=== PATIENT | female | born 1985 | race Caucasian/White ===

== ENCOUNTER 2016-10-17 18:59 | Inpatient (IN) | payer MEDICAID ==
[~2016-10-17] VITALS: Ht 170.2 cm; Wt 64.0 kg
[~2016-10-17 18:59] MED LIST: ALPR0.25; NOR10T
[2016-10-17] MEDS ORDERED: SODIUM CHLORIDE 0.9% 1,000 ML IVB ONE (19:05)
[2016-10-17 19:37] LABS: DEFINITIVE VIEW TRANSMISSION; Hematocrit 41.3 % (36.0-46.0); Hemoglobin 13.2 g/dL (12.2-16.2); Mean Corpuscular Hemoglobin 29.5 pg (28.0-32.0); Mean Corpuscular Volume 92.3 fL (80.0-100.0); Platelet Count (auto) 40 10^3/uL (140-450); SUSPECT VIEW TRANSMISSION; White Blood Cell 11.8 10^3/uL (4.4-10.8)
[2016-10-17 19:43] LABS: Urine Bilirubin Negative (Negative); Urine Color Yellow (Yellow); Urine Glucose Normal (Normal); Urine Ketone TRACE (Negative); Urine Mucus FEW (None Seen); Urine RBC 19 /hpf (0 - 4); Urine Squamous Epithelial Cell FEW /hpf (<5); Urine Urobilinogen Normal (Negative); Urine pH 6.5 (5.0-8.0)
[2016-10-17 19:47] LABS: Urine Blood 3+ /uL (Negative); Urine Nitrite POSITIVE (Negative)
[2016-10-17 19:51] LABS: INR 1.31 (0.9-1.15); Partial Thromboplastin Time 31.5 sec (22.64-33.71); Prothrombin Time 14.1 sec (9.37-12.3)
[2016-10-17 19:54] LABS: Red Cell Distribution Width 20.7 % (11.6-16.0)
[2016-10-17 19:55] LABS: Metamyelocytes % 0; Myelocytes % 0; Promyelocytes % 0; Reactive Lymphocytes 0
[2016-10-17 19:59] LABS: Lactic Acid w/Reflex 6.7 mmol/L (0.4-2.0)
[2016-10-17 20:00] LABS: REFLEX LACTIC ACID YES OR NO YES
[2016-10-17 20:15] LABS: Albumin 2.7 g/dL (3.4-5.0); Alkaline Phosphatase 79 U/L (45-117); Anion Gap 18 (5-15); Aspartate Aminotransferase 125 U/L (15-37); BUN/Creatinine Ratio 26.6; Blood Urea Nitrogen 34 mg/dL (7-18); Calcium 8.4 mg/dL (8.5-10.1); Carbon Dioxide 21 mmol/L (21-32); Chloride 105 mmol/L (98-107); GFR African American 63 mL/min; GFR Non-African American 52 mL/min; Glucose 127 mg/dL (74-106); Magnesium 3.1 mg/dL (1.6-2.6); Sodium 144 mmol/L (136-145); Total Protein 7.6 g/dL (6.4-8.2)
[2016-10-17] MEDS ORDERED: SODIUM CHLORIDE 0.9% 1,000 ML IV ONE (20:15)
[2016-10-17] MEDS ORDERED: PIPERACILLIN-TAZOB 3.375GM 100 ML IV ONE ×2 (20:15→20:16)
[2016-10-17 20:20] LABS: Potassium 2.6 mmol/L (3.5-5.1)
[2016-10-17 20:29] LABS: Anisocytosis Slight; Giant Platelets Few; Large Platelets FEW; Platelet Estimate Decreased
[2016-10-17] MEDS ORDERED: ACETAMINOPHEN 650 MG RECT SUPP PR ONE ×2 (21:16→21:30)
[2016-10-17] MEDS: POTASSIUM CHL 20MEQ/100ML 100 ML IV SCH ×2 (21:20→22:30)
[2016-10-17] MEDS ORDERED: SODIUM CHLORIDE 0.9% 1,000 ML IV SCH (23:53)
[2016-10-18] VITALS (49 sets, daily range): BP systolic 83–140; BP diastolic 31–113
[2016-10-18] MEDS ORDERED: ONDANSETRON HCL 4 MG/2 ML VIAL IV PRN
[2016-10-18] MEDS ORDERED: ASPirin 81 mg TAB NG ONE
[2016-10-18] MEDS ORDERED: NITROGLYCERIN 0.4 MG SL TAB SL PRN
[2016-10-18] MEDS ORDERED: PANTOPRAZOLE SODIUM 40 MG/10 ML VIAL IV ONE
[2016-10-18] MEDS ORDERED: VANCOMYCIN PER PHARMACY 0 MG IV SCH
[2016-10-18 00:35] LABS: Blood 02Sat 95.9 % (96-100); Blood AaDO2 85.5 mmHg (<26.0); Blood COHb 0.3 % (<2.0); Blood MetHb 0.3 % (0.0-1.5); Blood O2Hb 95.3 % (95.0-100.0); HCO3 17.5 mmol/L (22-26.0); MODE NASAL CANNULA; PCO2 22.7 mmHg (35.0-45.0); PO2 87.4 mmHg (65.0-85.0); Room 1009-ERT; Sample Type Arterial; pH 7.504 (7.350-7.450)
[2016-10-18] MEDS ORDERED: VANCOMYCIN 1GM/250ML D5W 250 ML IV ONE (01:00)
[2016-10-18] MEDS ORDERED: SODIUM CHLORIDE 0.9% 1,000 ML IV ONE (02:45)
[2016-10-18 03:57] LABS: DEFINITIVE VIEW TRANSMISSION; SUSPECT VIEW TRANSMISSION
[2016-10-18] MEDS ORDERED: PIPERACILLIN-TAZOB 2.25GM 50 ML IV SCH (04:00)
[2016-10-18 04:08] LABS: Hematocrit 31.8 % (36.0-46.0); Hemoglobin 10.3 g/dL (12.2-16.2); Mean Corpuscular Hgb Conc. 32.5 g/dL (32.0-36.0); Mean Corpuscular Volume 92.4 fL (80.0-100.0); Mean Platelet Volume 11.7 fL (7.4-10.4); Platelet Count (auto) 25 10^3/uL (140-450)
[2016-10-18 04:15] LABS: Red Cell Distribution Width 21.7 % (11.6-16.0)
[2016-10-18 04:16] LABS: Metamyelocytes % 0; Myelocytes % 0; Promyelocytes % 0; Reactive Lymphocytes 0
[2016-10-18 04:24] LABS: BUN/Creatinine Ratio 33.3; Calcium 6.9 mg/dL (8.5-10.1)
[2016-10-18 04:27] LABS: Bilirubin, Total 1.2 mg/dL (0.2-1.0); Total Protein 5.7 g/dL (6.4-8.2)
[2016-10-18 04:39] LABS: Potassium 2.5 mmol/L (3.5-5.1)
[2016-10-18 04:48] LABS: Anisocytosis Slight; Ovalocytes FEW; Platelet Estimate Decreased
[2016-10-18] MEDS ORDERED: POTASSIUM CHL 20MEQ/100ML 100 ML IV ONE ×2 (04:53)
[2016-10-18] MEDS: POTASSIUM CHL 20MEQ/100ML 100 ML IV SCH ×5 (05:15→14:15)
[2016-10-18] MEDS: PIPERACILLIN-TAZOB 3.375GM 100 ML IV SCH ×3 (06:00→22:26)
[2016-10-18] MEDS: PANTOPRAZOLE SODIUM 40 MG/10 ML VIAL IV SCH (09:08)
[2016-10-18] MEDS: MORPHINE SULF INJ 2 MG/ML SYRINGE 1ML IV PRN ×3 (09:09→22:17)
[2016-10-18] MEDS: ENOXAPARIN SOD 40 MG/0.4 ML SYRINGE SC SCH (09:09)
[2016-10-18] MEDS ORDERED: ASPirin 81 mg TAB PO SCH (10:00)
[2016-10-18] MEDS ORDERED: ENOXAPARIN SOD 30 MG/0.3 ML SYRINGE SC SCH (10:00)
[2016-10-18] MEDS ORDERED: POTASSIUM PHOSPHATE 44 MEQ in SODIUM CHL 0.9% 250 ML IV ONE (12:00)
[2016-10-18] MEDS: SOD CHL 0.9%/ KCL 20MEQ 1,000 ML IV SCH ×2 (12:15→22:15)
[2016-10-18 12:51] LABS: BUN/Creatinine Ratio 36.4; Calcium 6.9 mg/dL (8.5-10.1); Potassium 3.2 mmol/L (3.5-5.1)
[2016-10-18] MEDS: VANCOMYCIN 1GM/250ML D5W 250 ML IV SCH (13:00)
[2016-10-18] MEDS ORDERED: POTASSIUM CHLORIDE 40 MEQ, LIDOCAINE 1% (LOCAL ANESTH.) 4 ML in SODIUM CHL 0.9% 250 ML IV ONE (13:30)
[2016-10-18] MEDS ORDERED: NICOTINE 21MG/24 HR TOPICAL PATCH TD ONE (14:30)
[2016-10-18 18:13] LABS: BUN/Creatinine Ratio 32.3; Calcium 7.3 mg/dL (8.5-10.1); Potassium 3.7 mmol/L (3.5-5.1)
[2016-10-19] VITALS (40 sets, daily range): BP systolic 92–131; BP diastolic 47–79
[2016-10-19] MEDS: VANCOMYCIN 1GM/250ML D5W 250 ML IV SCH ×2 (01:04→14:17)
[2016-10-19] MEDS: MORPHINE SULF INJ 2 MG/ML SYRINGE 1ML IV PRN ×5 (02:25→22:08)
[2016-10-19] MEDS: SOD CHL 0.9%/ KCL 20MEQ 1,000 ML IV SCH ×4 (04:00→22:09)
[2016-10-19 04:03] LABS: Magnesium 2.6 mg/dL (1.6-2.6)
[2016-10-19 04:06] LABS: BUN/Creatinine Ratio 28.9
[2016-10-19 04:08] LABS: Bilirubin, Total 0.9 mg/dL (0.2-1.0); Total Protein 5.8 g/dL (6.4-8.2)
[2016-10-19 04:47] LABS: DEFINITIVE VIEW TRANSMISSION; Hemoglobin 10.1 g/dL (12.2-16.2); SUSPECT VIEW TRANSMISSION
[2016-10-19 04:48] LABS: Hematocrit 31.9 % (36.0-46.0); Mean Corpuscular Hemoglobin 29.7 pg (28.0-32.0); Mean Corpuscular Hgb Conc. 31.6 g/dL (32.0-36.0); Mean Corpuscular Volume 93.9 fL (80.0-100.0); Mean Platelet Volume 10.9 fL (7.4-10.4); Platelet Count (auto) 23 10^3/uL (140-450); White Blood Cell 10.5 10^3/uL (4.4-10.8)
[2016-10-19 04:50] LABS: Metamyelocytes % 0; Myelocytes % 0; Promyelocytes % 0; Reactive Lymphocytes 0
[2016-10-19 05:17] LABS: Burr Cells FEW; Hypersegmented Neutrophils Present; Large Platelets FEW; Ovalocytes FEW; Platelet Estimate Decrea
[2016-10-19] MEDS: PIPERACILLIN-TAZOB 3.375GM 100 ML IV SCH ×3 (06:00→22:00)
[2016-10-19] MEDS: POTASSIUM CHLORIDE 20 MEQ, LIDOCAINE 1% (LOCAL ANESTH.) 2 ML in SODIUM CHL 0.9% 100 ML IV SCH ×3 (08:09→14:09)
[2016-10-19 09:50] LABS: Hepatitis B Surface Antibody Positive
[2016-10-19] MEDS: NICOTINE 21MG/24 HR TOPICAL PATCH TD SCH (09:55)
[2016-10-19] MEDS: ENOXAPARIN SOD 40 MG/0.4 ML SYRINGE SC SCH (09:55)
[2016-10-19] MEDS: PANTOPRAZOLE SODIUM 40 MG/10 ML VIAL IV SCH (09:55)
[2016-10-19] MEDS ORDERED: THIAMINE INJ 100 MG, MULTIPLE VITAMIN 10 ML, FOLIC ACID 1 MG, MAGNESIUM SULF SDV 50% 8 ... IV SCH ×5 (10:00)
[2016-10-19] MEDS ORDERED: FUROSEMIDE 20 MG/2 ML VIAL IV ONE (20:00)
[2016-10-19] MEDS ORDERED: POTASSIUM CHL 20MEQ/100ML 100 ML IV SCH (20:00)
[2016-10-19] MEDS ORDERED: LORazepam 2MG/ML-1ML VIAL IV PRN (20:45)
[2016-10-19] MEDS ORDERED: POTASSIUM CHLORIDE 20 MEQ, LIDOCAINE 1% (LOCAL ANESTH.) 2 ML in SODIUM CHL 0.9% 100 ML IV ONE (22:00)
[2016-10-19] MEDS: VANCOMYCIN 750 MG in D5W 5% 250 ML IV SCH (23:38)
[2016-10-20] VITALS (58 sets, daily range): BP systolic 88–122; BP diastolic 19–88
[2016-10-20] MEDS: MORPHINE SULF INJ 2 MG/ML SYRINGE 1ML IV PRN (01:42)
[2016-10-20 04:04] LABS: Albumin 1.9 g/dL (3.4-5.0); Bilirubin, Total 1.5 mg/dL (0.2-1.0); Calcium 7.3 mg/dL (8.5-10.1); Magnesium 2.2 mg/dL (1.6-2.6); Potassium 3.5 mmol/L (3.5-5.1); Total Protein 5.6 g/dL (6.4-8.2)
[2016-10-20 04:21] LABS: DEFINITIVE VIEW TRANSMISSION; Hematocrit 33.7 % (36.0-46.0); Hemoglobin 10.7 g/dL (12.2-16.2); Mean Corpuscular Hemoglobin 29.1 pg (28.0-32.0); Mean Corpuscular Hgb Conc. 31.9 g/dL (32.0-36.0); Mean Corpuscular Volume 91.5 fL (80.0-100.0); Mean Platelet Volume 12.2 fL (7.4-10.4); Red Cell Distribution Width 22.2 % (11.6-16.0); SUSPECT VIEW TRANSMISSION; White Blood Cell 11.8 10^3/uL (4.4-10.8)
[2016-10-20 04:22] LABS: Platelet Count (auto) 8 10^3/uL (140-450)
[2016-10-20] MEDS: VANCOMYCIN 750 MG in D5W 5% 250 ML IV SCH ×2 (05:00→20:43)
[2016-10-20] MEDS: PIPERACILLIN-TAZOB 3.375GM 100 ML IV SCH ×2 (06:39→22:28)
[2016-10-20 06:50] LABS: Metamyelocytes % 0; Promyelocytes % 0; Reactive Lymphocytes 0
[2016-10-20 06:54] LABS: Hypersegmented Neutrophils Present; Myelocytes % 1
[2016-10-20 06:55] LABS: Large Platelets FEW; Ovalocytes FEW
[2016-10-20 06:56] LABS: Platelet Estimate Marked
[2016-10-20] MEDS ORDERED: FUROSEMIDE 20 MG/2 ML VIAL IV ONE (10:45)
[2016-10-20 11:09] LABS: Antiproteinase 3 (PR-3) Ab 4.3 U/mL (0.0-3.5)
[2016-10-20] MEDS: PANTOPRAZOLE SODIUM 40 MG/10 ML VIAL IV SCH (11:36)
[2016-10-20] MEDS: NICOTINE 21MG/24 HR TOPICAL PATCH TD SCH (11:40)
[2016-10-20] MEDS: POTASSIUM CHL 20MEQ/100ML 100 ML IV SCH ×2 (11:42→17:07)
[2016-10-20] MEDS ORDERED: diphenhdrAMINE HCL 50 MG/1 ML VL IV ONE (15:45)
[2016-10-20] MEDS ORDERED: ROCURONIUM 10MG/ML 10ML VIAL IV ONE ×3 (19:33→20:00)
[2016-10-20] MEDS ORDERED: SUCCINYLCHOLINE CHLORIDE 20 MG/ML 10ML VIAL IV ONE (19:42)
[2016-10-20] MEDS ORDERED: ETOMIDATE (2MG/ML) 20ML VIAL IV ONE ×2 (19:42→20:00)
[2016-10-20] MEDS ORDERED: MIDAZOLAM DRIP 100 mg/100mL NS 100 ML IV ONE (19:55)
[2016-10-20] MEDS ORDERED: fentaNYL Drip 2500mCg/250mlNS 250 ML IV ONE (19:56)
[2016-10-20] MEDS: MIDAZOLAM DRIP 100 mg/100mL NS 100 ML IV SCH (20:30)
[2016-10-20] MEDS: fentaNYL Drip 2500mCg/250mlNS 250 ML IV SCH (20:30)
[2016-10-20] MEDS ORDERED: SODIUM BICARBONATE 8.4 % INJ 50ML VIAL IV ONE (21:00)
[2016-10-20] MEDS: ACETAMINOPHEN 650 mg PER 20 mL UD PO PRN (22:29)
[2016-10-21] VITALS (103 sets, daily range): BP systolic 79–125; BP diastolic 39–71
[2016-10-21] MEDS: NOREPINEPHRINE BITARTRATE 250 ML IV SCH ×2 (01:21→19:28)
[2016-10-21] MEDS: VANCOMYCIN 750 MG in D5W 5% 250 ML IV SCH ×3 (03:41→20:00)
[2016-10-21 04:07] LABS: DEFINITIVE VIEW TRANSMISSION; Hematocrit 31.3 % (36.0-46.0); Hemoglobin 10.2 g/dL (12.2-16.2); Mean Corpuscular Hemoglobin 29.4 pg (28.0-32.0); Mean Corpuscular Hgb Conc. 32.6 g/dL (32.0-36.0); Mean Corpuscular Volume 90.1 fL (80.0-100.0); Mean Platelet Volume 10.4 fL (7.4-10.4); Platelet Count (auto) 24 10^3/uL (140-450); SUSPECT VIEW TRANSMISSION; White Blood Cell 17.3 10^3/uL (4.4-10.8)
[2016-10-21 04:11] LABS: Red Cell Distribution Width 22.6 % (11.6-16.0)
[2016-10-21 04:12] LABS: Promyelocytes % 0; Reactive Lymphocytes 0
[2016-10-21 04:31] LABS: Albumin 1.7 g/dL (3.4-5.0); BUN/Creatinine Ratio 36.3; Bilirubin, Total 2.5 mg/dL (0.2-1.0); Potassium 4.3 mmol/L (3.5-5.1); Total Protein 5.2 g/dL (6.4-8.2)
[2016-10-21] MEDS: MIDAZOLAM DRIP 100 mg/100mL NS 100 ML IV SCH ×3 (04:59→23:58)
[2016-10-21] MEDS: PIPERACILLIN-TAZOB 3.375GM 100 ML IV SCH ×3 (05:39→22:04)
[2016-10-21 07:18] LABS: Metamyelocytes % 2; Myelocytes % 2
[2016-10-21 07:19] LABS: Anisocytosis Moderate; Ovalocytes FEW; Platelet Estimate Markedly Decreased
[2016-10-21 07:20] LABS: Large Platelets FEW; Polychromasia Slight; Schistocytes FEW; Tear Drop Cells FEW
[2016-10-21] MEDS: PANTOPRAZOLE SODIUM 40 MG/10 ML VIAL IV SCH (10:32)
[2016-10-21] MEDS: NICOTINE 21MG/24 HR TOPICAL PATCH TD SCH (10:33)
[2016-10-21] MEDS: SOD CHL 0.45% 1,000 ML IV SCH ×2 (11:00→21:00)
[2016-10-21] MEDS ORDERED: IV IMM GLOBULIN(IVIG)10%20G/200ML IV ONE (17:00)
[2016-10-21] MEDS ORDERED: [UNRECOGNIZED DRUG - OTHER] IV ONE (17:00)
[2016-10-21] MEDS ORDERED: diphenhdrAMINE HCL 50 MG/1 ML VL ONE (18:23)
[2016-10-21] MEDS: ACETAMINOPHEN 650 mg PER 20 mL UD PO PRN (18:34)
[2016-10-21] MEDS: fentaNYL Drip 2500mCg/250mlNS 250 ML IV SCH (19:58)
[2016-10-22] VITALS (113 sets, daily range): BP systolic 110–135; BP diastolic 51–79
[2016-10-22] MEDS: VANCOMYCIN 750 MG in D5W 5% 250 ML IV SCH (04:05)
[2016-10-22] MEDS: fentaNYL Drip 2500mCg/250mlNS 250 ML IV SCH (05:09)
[2016-10-22] MEDS: PIPERACILLIN-TAZOB 3.375GM 100 ML IV SCH ×3 (06:20→22:35)
[2016-10-22] MEDS: SOD CHL 0.45% 1,000 ML IV SCH ×2 (06:21→17:00)
[2016-10-22] MEDS: MIDAZOLAM DRIP 100 mg/100mL NS 100 ML IV SCH ×2 (10:03→19:40)
[2016-10-22] MEDS: NICOTINE 21MG/24 HR TOPICAL PATCH TD SCH (10:03)
[2016-10-22] MEDS: PANTOPRAZOLE SODIUM 40 MG/10 ML VIAL IV SCH (10:11)
[2016-10-22 10:36] LABS: Albumin 1.5 g/dL (3.4-5.0); BUN/Creatinine Ratio 42.9; Bilirubin, Total 1.2 mg/dL (0.2-1.0); Calcium 7.1 mg/dL (8.5-10.1); Magnesium 2.8 mg/dL (1.6-2.6); Total Protein 6.6 g/dL (6.4-8.2)
[2016-10-22] MEDS ORDERED: Nutren Pulmonary 1 Liter GT SCH (11:45)
[2016-10-22 11:57] LABS: DEFINITIVE VIEW TRANSMISSION; Hematocrit 26.3 % (36.0-46.0); Hemoglobin 8.4 g/dL (12.2-16.2); Mean Corpuscular Hemoglobin 29.4 pg (28.0-32.0); Mean Corpuscular Volume 91.9 fL (80.0-100.0); Mean Platelet Volume 9.6 fL (7.4-10.4); SUSPECT VIEW TRANSMISSION; White Blood Cell 21.8 10^3/uL (4.4-10.8)
[2016-10-22 11:58] LABS: Red Cell Distribution Width 24.3 % (11.6-16.0)
[2016-10-22 11:59] LABS: Platelet Count (auto) 11 10^3/uL (140-450)
[2016-10-22 12:04] LABS: Promyelocytes % 0; Reactive Lymphocytes 0
[2016-10-22 12:10] LABS: Metamyelocytes % 2; Myelocytes % 1
[2016-10-22 12:11] LABS: Anisocytosis Moderate
[2016-10-22 12:12] LABS: Ovalocytes FEW; Schistocytes FEW
[2016-10-22 12:13] LABS: Burr Cells FEW; Large Platelets FEW; Platelet Estimate Marked
[2016-10-22 12:17] LABS: Toxic Granulation Slight
[2016-10-22] MEDS ORDERED: FUROSEMIDE 20 MG/2 ML VIAL IV ONE ×2 (13:45→19:00)
[2016-10-22] MEDS: IMMUNE GLOBULIN 10% IV SCH ×2 (17:00→20:20)
[2016-10-22] MEDS ORDERED: IV IMMUNE GLOBULIN 10% 200 ML IV SCH (17:00)
[2016-10-22] MEDS: NOREPINEPHRINE BITARTRATE 250 ML IV SCH (17:42)
[2016-10-22] MEDS ORDERED: HEPARIN DRIP/D5W 100UNITS/ML 250 ML IV SCH (20:13)
[2016-10-22] MEDS ORDERED: HEPARIN 1,000 UNITS/ml 1ML VIAL IV ONE (20:15)
[2016-10-22 21:25] LABS: DEFINITIVE VIEW TRANSMISSION; Hematocrit 39.7 % (36.0-46.0); Hemoglobin 12.6 g/dL (12.2-16.2); Mean Corpuscular Hemoglobin 29.4 pg (28.0-32.0); Mean Corpuscular Hgb Conc. 31.6 g/dL (32.0-36.0); Mean Platelet Volume 8.9 fL (7.4-10.4); SUSPECT VIEW TRANSMISSION; White Blood Cell 21.7 10^3/uL (4.4-10.8)
[2016-10-22 21:29] LABS: Red Cell Distribution Width 22.1 % (11.6-16.0)
[2016-10-22 21:30] LABS: Metamyelocytes % 0; Myelocytes % 0; Promyelocytes % 0; Reactive Lymphocytes 0
[2016-10-22 21:35] LABS: Platelet Count (auto) 9 10^3/uL (140-450)
[2016-10-22 21:38] LABS: Partial Thromboplastin Time 26.7 sec (22.64-33.71)
[2016-10-22 21:41] LABS: Anisocytosis Slight; Ovalocytes FEW; Platelet Estimate Markedly Decreased; Schistocytes FEW; Tear Drop Cells FEW
[2016-10-22 21:53] LABS: INR 1.21 (0.9-1.15); Prothrombin Time 13.1 sec (9.37-12.3)
[2016-10-22 22:16] LABS: Fibrinogen 121.6 mg/dL (177-375)
[2016-10-23] VITALS (98 sets, daily range): BP systolic 83–133; BP diastolic 4–67
[2016-10-23] MEDS ORDERED: ACETAMINOPHEN 325 MG RECT SUPP PR ONE (02:00)
[2016-10-23] MEDS ORDERED: diphenhdrAMINE HCL 50 MG/1 ML VL IV ONE (02:00)
[2016-10-23] MEDS: MIDAZOLAM DRIP 100 mg/100mL NS 100 ML IV SCH (03:18)
[2016-10-23] MEDS: SOD CHL 0.45% 1,000 ML IV SCH ×3 (03:26→23:00)
[2016-10-23 05:03] LABS: DEFINITIVE VIEW TRANSMISSION; Hematocrit 33.1 % (36.0-46.0); Hemoglobin 11.1 g/dL (12.2-16.2); Mean Corpuscular Hemoglobin 29.3 pg (28.0-32.0); Mean Corpuscular Hgb Conc. 33.5 g/dL (32.0-36.0); Mean Corpuscular Volume 87.7 fL (80.0-100.0); Mean Platelet Volume 7.7 fL (7.4-10.4); SUSPECT VIEW TRANSMISSION; White Blood Cell 26.8 10^3/uL (4.4-10.8)
[2016-10-23 05:06] LABS: Red Cell Distribution Width 20.5 % (11.6-16.0)
[2016-10-23 05:08] LABS: Platelet Count (auto) 11 10^3/uL (140-450)
[2016-10-23 05:09] LABS: Metamyelocytes % 0; Promyelocytes % 0; Reactive Lymphocytes 0
[2016-10-23 05:23] LABS: Myelocytes % 2
[2016-10-23 05:24] LABS: Ovalocytes FEW; Platelet Estimate Markedly Decreased; Schistocytes FEW; Tear Drop Cells FEW
[2016-10-23 05:25] LABS: Anisocytosis Marked; Polychromasia Slight
[2016-10-23 05:26] LABS: INR 1.31 (0.9-1.15); Prothrombin Time 14.1 sec (9.37-12.3)
[2016-10-23 05:41] LABS: Albumin 1.5 g/dL (3.4-5.0); BUN/Creatinine Ratio 33.3; Calcium 6.6 mg/dL (8.5-10.1); Potassium 3.5 mmol/L (3.5-5.1)
[2016-10-23 05:44] LABS: Bilirubin, Total 1.3 mg/dL (0.2-1.0); Total Protein 6.8 g/dL (6.4-8.2)
[2016-10-23] MEDS: PIPERACILLIN-TAZOB 3.375GM 100 ML IV SCH ×3 (05:52→22:31)
[2016-10-23] MEDS ORDERED: DAPTOmycin 0 MG in SODIUM CHL 0.9% 50 ML IV SCH (10:00)
[2016-10-23] MEDS: FREE WATER GT SCH ×2 (12:00→18:16)
[2016-10-23] MEDS ORDERED: LIDOCAINE 1% HCL (LOCAL ANESTH.) INJ 20ML MDV ID ONE (12:15)
[2016-10-23] MEDS: PANTOPRAZOLE SODIUM 40 MG/10 ML VIAL IV SCH (12:30)
[2016-10-23] MEDS: NICOTINE 21MG/24 HR TOPICAL PATCH TD SCH (12:30)
[2016-10-23] MEDS ORDERED: DAPTOMYCIN IV SCH ×2 (13:45→16:05)
[2016-10-23] MEDS ORDERED: DAPTOmycin 500 MG in SODIUM CHL 0.9% 100 ML IV SCH (14:00)
[2016-10-23] MEDS: CLINDAMYCIN 600MG IV 50 ML IV SCH ×2 (14:59→22:31)
[2016-10-23 16:24] LABS: INR 1.22 (0.9-1.15); Prothrombin Time 13.2 sec (9.37-12.3)
[2016-10-23] MEDS ORDERED: IV IMMUNE GLOBULIN 10% 200 ML IV SCH (17:00)
[2016-10-23] MEDS: fentaNYL Drip 2500mCg/250mlNS 250 ML IV SCH ×2 (19:58→20:33)
[2016-10-23 21:30] LABS: DEFINITIVE VIEW TRANSMISSION; Hematocrit 32.7 % (36.0-46.0); Hemoglobin 10.7 g/dL (12.2-16.2); Mean Corpuscular Hemoglobin 29.3 pg (28.0-32.0); Mean Corpuscular Hgb Conc. 32.8 g/dL (32.0-36.0); Mean Corpuscular Volume 89.2 fL (80.0-100.0); SUSPECT VIEW TRANSMISSION; White Blood Cell 21.9 10^3/uL (4.4-10.8)
[2016-10-23 21:36] LABS: Metamyelocytes % 0; Myelocytes % 0; Promyelocytes % 0; Reactive Lymphocytes 0; Red Cell Distribution Width 21.9 % (11.6-16.0)
[2016-10-23 21:37] LABS: Mean Platelet Volume 10.8 fL (7.4-10.4); Platelet Count (auto) 30 10^3/uL (140-450)
[2016-10-23 21:44] LABS: Albumin 1.7 g/dL (3.4-5.0); BUN/Creatinine Ratio 40.5; Calcium 6.4 mg/dL (8.5-10.1); Potassium 3.5 mmol/L (3.5-5.1); Total Protein 7.3 g/dL (6.4-8.2)
[2016-10-23] MEDS ORDERED: SODIUM CHLOR 0.9% PF (SALINE LOCK) 10ML VIAL IV SCH (22:00)
[2016-10-23] MEDS: NOREPINEPHRINE BITARTRATE 250 ML IV SCH (22:12)
[2016-10-23] MEDS: ACETYLCYSTEINE 10 %(100MG/ML) SOL 4ML NEB SCH (22:30)
[2016-10-23 22:33] LABS: Anisocytosis Slight; Platelet Estimate Markedly Decreased
[2016-10-23 22:34] LABS: Ovalocytes FEW
[2016-10-23] MEDS: ALBUTEROL SULF 2.5 MG/0.5ML(0.5%) NEB SOLN NEB SCH (22:37)
[2016-10-23 23:24] LABS: INR 1.16 (0.9-1.15); Prothrombin Time 12.5 sec (9.37-12.3)
[2016-10-24] VITALS (57 sets, daily range): BP systolic 86–131; BP diastolic 27–75
[2016-10-24] MEDS: FREE WATER GT SCH ×2 (06:00)
[2016-10-24] MEDS: CLINDAMYCIN 600MG IV 50 ML IV SCH (06:00)
[2016-10-24] MEDS: ACETYLCYSTEINE 10 %(100MG/ML) SOL 4ML NEB SCH (06:00)
[2016-10-24] MEDS: PIPERACILLIN-TAZOB 3.375GM 100 ML IV SCH (06:00)
[2016-10-24] MEDS: ALBUTEROL SULF 2.5 MG/0.5ML(0.5%) NEB SOLN NEB SCH (06:00)
[2016-10-24] MEDS ORDERED: MORPHINE SULF INJ 2 MG/ML SYRINGE 1ML IV PRN (10:15)
[2016-10-24] MEDS ORDERED: LORazepam 2MG/ML-1ML VIAL IV PRN (10:15)
[2016-10-24] MEDS: MORPHINE SULF INJ 2 MG/ML SYRINGE 1ML IV PRN ×10 (10:31→20:55)
[2016-10-24] MEDS: LORazepam 2MG/ML-1ML VIAL IV PRN ×5 (10:32→19:52)
== END 2016-10-24 23:30 | disposition expired | DRG 710 ==
LOC: ER 19:02 → TELE 19:03 → ICU WEST 10-18 08:26 → TELE-EAST 10-19 15:10 → ICU WEST 10-19 21:28
PROVIDERS: ADMIT Nurse Practitioner; ATTEND Internal Medicine
PROC: 5A09357 Assistance with Respiratory Ventilation, Less than 24 Consecutive Hours, Continuous Positive Airway Pressure (ICD-10-PCS; 2016-10-18)
PROC: 30233R1 Transfusion of Nonautologous Platelets into Peripheral Vein, Percutaneous Approach (ICD-10-PCS; 2016-10-18)
PROC: 30233N1 Transfusion of Nonautologous Red Blood Cells into Peripheral Vein, Percutaneous Approach (ICD-10-PCS; 2016-10-18)
PROC: 5A1945Z Respiratory Ventilation, 24-96 Consecutive Hours (ICD-10-PCS; principal; 2016-10-20)
PROC: 0BH17EZ Insertion of Endotracheal Airway into Trachea, Via Natural or Artificial Opening (ICD-10-PCS; 2016-10-20)
PROC: 02H633Z Insertion of Infusion Device into Right Atrium, Percutaneous Approach (ICD-10-PCS; 2016-10-23)
DX: A41.02 Sepsis due to Methicillin resistant Staphylococcus aureus (principal); I21.4 Non-ST elevation (NSTEMI) myocardial infarction; J96.00 Acute respiratory failure, unspecified whether with hypoxia or hypercapnia; D65 Disseminated intravascular coagulation [defibrination syndrome]; I33.0 Acute and subacute infective endocarditis; G92 Toxic encephalopathy; J18.9 Pneumonia, unspecified organism; E43 Unspecified severe protein-calorie malnutrition; E87.0 Hyperosmolality and hypernatremia; E87.2 Acidosis; D69.6 Thrombocytopenia, unspecified; R65.20 Severe sepsis without septic shock; E86.0 Dehydration; F19.10 Other psychoactive substance abuse, uncomplicated; N39.0 Urinary tract infection, site not specified; B19.20 Unspecified viral hepatitis C without hepatic coma; F15.19 Other stimulant abuse with unspecified stimulant-induced disorder; F10.10 Alcohol abuse, uncomplicated; I38 Endocarditis, valve unspecified; D64.9 Anemia, unspecified; E11.9 Type 2 diabetes mellitus without complications; E46 Unspecified protein-calorie malnutrition; E78.5 Hyperlipidemia, unspecified; E87.6 Hypokalemia; F15.90 Other stimulant use, unspecified, uncomplicated; F17.210 Nicotine dependence, cigarettes, uncomplicated; I34.0 Nonrheumatic mitral (valve) insufficiency; I50.31 Acute diastolic (congestive) heart failure; K72.90 Hepatic failure, unspecified without coma; N17.9 Acute kidney failure, unspecified; Z82.49 Family history of ischemic heart disease and other diseases of the circulatory system; Z91.19 Patient's noncompliance with other medical treatment and regimen; Z95.0 Presence of cardiac pacemaker; F10.20 Alcohol dependence, uncomplicated; F15.10 Other stimulant abuse, uncomplicated; F41.9 Anxiety disorder, unspecified; F32.9 Major depressive disorder, single episode, unspecified
CPT/HCPCS: 36415; 36569; 36600; 51702; 70450; 71010; 73200; 76705; 80048; 80053; 80202; 80307; 80320; 81001; 82140; 82550; 82570; 82805; 82962; 83520; 83605; 83615; 83735; 84100; 84156; 84300; 84484; 84702; 85007; 85025; 85027; 85045; 85379; 85384; 85610; 85730; 86160; 86256; 86704; 86706; 86708; 86803; 86850; 86900; 86901; 86920; 87040; 87070; 87077; 87081; 87186; 87205; 87340; 93005; 93306; 94002; 94003; 94640; 95819; 96361; 96365; 96366; 96367; 96375; 97001; 97110; A4565; C9113; J0330; J1459; J2001; J2405; J2543; J3010; J3480; J3490; J7060